=== PATIENT | male | born 1965 | race Caucasian/White ===

== ENCOUNTER 2020-03-10 23:12 | Emergency (ER) | payer BC ==
[~2020-03-10] VITALS: Ht 167.6 cm; Wt 72.7 kg
[2020-03-10 23:17] VITALS: TEMP 97.8
[2020-03-10 23:29] LABS: BASO # 0.1 (0.0-0.2); BASO % 0.7 % (0.0-2.0); EOS # 0.2 (0.0-0.7); EOS % 2.5 % (0-4.0); GRAN # 4.5 (1.4-6.5); GRAN % 46.2 % (42.2-75.2); HEMATOCRIT 48.2 % (42.0-52.0); HEMOGLOBIN 16.5 g/dl (13.5-18.0); LYMPH # 3.8 (1.2-3.4); LYMPH % 39.5 % (20.0-51.0); MEAN CELL VOLUME 90 fl (80.0-100.0); MEAN CORPUSCULAR HEMOGLOBIN 31 pg (27.0-31.0); MEAN CORPUSCULAR HGB CONC 34 g/dl (33.0-37.0); MEAN PLATELET VOLUME 9.1 fl (7.4-10.4); MONO # 1.1 (0.1-0.6); MONO % 10.9 % (1.7-9.3); PLATELET COUNT 328 K/mm3 (130-400); RED BLOOD COUNT 5.35 M/mm3 (4.20-5.60); REDCELL DISTRIBUTION WIDTH-CV 12.2 % (11.5-14.5)
[2020-03-10 23:34] LABS: INR 1.1 (0.8-3.0); PROTHROMBIN TIME 11.9 SECONDS (9.7-12.8)
[2020-03-10 23:37] LABS: PARTIAL THROMBOPLASTIN TIME 34.4 SECONDS (26.0-37.0)
[2020-03-10 23:39] LABS: ALBUMIN 4.9 gm/dL (3.5-5.0); BILIRUBIN,TOTAL 0.6 mg/dL (0.0-1.0); CALCIUM 9.8 mg/dL (8.4-10.2); CREATININE, serum 1.07 (0.66-1.25); POTASSIUM 3.8 mmol/L (3.4-5.0); TOTAL PROTEIN 8.6 gm/dL (6.4-8.2)
[2020-03-10 23:52] LABS: TROPONIN-I 0.161 ng/mL (0.000-0.035)
[2020-03-11 01:10] VITALS: BP 142/86; PULSE 56
== END 2020-03-11 01:35 | disposition short-term general hospital (02) ==
LOC: COL.ER 23:12
PROVIDERS: Emergency Medicine; Physician Assistant
DX: I21.4 Non-ST elevation (NSTEMI) myocardial infarction (principal); Z82.49 Family history of ischemic heart disease and other diseases of the circulatory system
CPT/HCPCS: J1644; J2405; J3010; J7030

== ENCOUNTER 2020-05-02 13:07 | Outpatient (RCR) | payer BC | END 2020-05-09 06:40 | disposition home or self-care (01) | LOC: COL.CR 13:07 | DX: I21.4 Non-ST elevation (NSTEMI) myocardial infarction (principal); Z48.812 Encounter for surgical aftercare following surgery on the circulatory system; Z95.5 Presence of coronary angioplasty implant and graft ==